=== PATIENT | male | born 1975 | race Two or more races ===

== ENCOUNTER 2022-07-02 09:06 | Emergency (ER) | payer OTHER ==
[~2022-07-02] VITALS: Ht 177.8 cm; Wt 96.6 kg
[2022-07-02] MEDS ORDERED: VASOTEC2.5 MG PO (09:15)
== END 2022-07-02 13:58 | disposition home or self-care (01) ==
LOC: ER 09:06
DX: R10.11 Right upper quadrant pain (principal); I10 Essential (primary) hypertension

== ENCOUNTER 2023-11-22 09:55 | Emergency (ER) | payer OTHER ==
[~2023-11-22] VITALS: Ht 177.8 cm; Wt 101.6 kg
[~2023-11-22 09:55] MED LIST: VASOTEC2.5 MG PO
[2023-11-22] MEDS ORDERED: ATORVASTATIN CA20 MG (10:04)
[2023-11-22 13:10] LABS: HEMOGLOBIN 13.2 g/dL (13-16.00); MEAN CELL VOLUME 85.7 fL (80.0-100.00); MEAN CORPUSCULAR HEMOGLOBIN 29.9 pg (27.00-32.0); MEAN CORPUSCULAR HGB CONC 34.9 g/dl (32.0-36.0); PLATELET COUNT 169 K/uL (150-450); RED BLOOD COUNT 4.43 M/uL (4.00-6.00)
[2023-11-22 13:34] LABS: CALCIUM 8.9 mg/dL (8.5-10.1); CREATININE SERUM 0.85 mg/dL (0.70-1.30); GFR 95.41; POTASSIUM 3.64 mEq/L (3.5-5.1)
[2023-11-22] MEDS ORDERED: EAR WAX DROPS15 M1 OPHT (13:50)
[2023-11-22] MEDS ORDERED: BENZONATATE150 MG PO (13:56)
== END 2023-11-22 14:50 | disposition home or self-care (01) ==
LOC: ER 09:56
PROVIDERS: General Practice
DX: A90 Dengue fever [classical dengue] (principal); H61.22 Impacted cerumen, left ear; Z20.822 Contact with and (suspected) exposure to COVID-19